=== PATIENT | female | born 1995 | race African-American/Black ===

== ENCOUNTER 2021-10-25 11:21 | Emergency (ER) | payer OTHER ==
[~2021-10-25] VITALS: Ht 160 cm; Wt 59.0 kg
[2021-10-25 11:28] VITALS: BP 131/78
[2021-10-25] MEDS ORDERED: CYCLOBENZAPRINE 10 MG TAB PO ONE (11:50)
[2021-10-25] MEDS ORDERED: KETOROLAC 30 MG/ML VIAL IM ONE (11:50)
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
--- NOTE | 2021-10-25 12:55 | NUR ---
CALLED CT/RAD TO PROCEED WITH SCANS PER PA AKHTAR
[2021-10-25] MEDS ORDERED: CYCL-711 PO (14:10)
[2021-10-25] MEDS ORDERED: NAPR-54 PO (14:10)
[2021-10-25] MEDS ORDERED: CEPH-588 PO (14:10)
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
== END 2021-10-25 11:53 | disposition home or self-care (01) ==
LOC: MED 11:21
DX: S09.90XA Unspecified injury of head, initial encounter (principal); M25.511 Pain in right shoulder; M54.9 Dorsalgia, unspecified; Y32.XXXA Crashing of motor vehicle, undetermined intent, initial encounter; Y93.89 Activity, other specified; Y92.89 Other specified places as the place of occurrence of the external cause; Y99.8 Other external cause status
CPT/HCPCS: 70450; 72110; 72125; 73030; 81002; 81025; 96372; 99285; J1885